=== PATIENT | female | born 1995 | race Caucasian/White ===

== ENCOUNTER 2017-07-23 10:26 | Emergency (ER) | payer MEDICAID, OTHER ==
[~2017-07-23] VITALS: Wt 59.0 kg
[2017-07-23] MEDS ORDERED: ACETAMINOPHEN 325 MG TAB PO STA (10:33)
[2017-07-23] MEDS ORDERED: LIDOCAINE 1%/EPI 30 ML INJ INJ STA (10:33)
[2017-07-23] MEDS ORDERED: SOD CHLORIDE 0.9% 500 ML IV STA (10:33)
[2017-07-23 11:20] LABS: BASOPHILS % 0.4 % (0.0-2.0); EOSINOPHILS # 0.1 10^3/ul (0.0-0.5); EOSINOPHILS % 1.1 % (0.0-7.0); HEMATOCRIT 38.5 % (37.0-47.0); HEMOGLOBIN 13.1 g/dl (12.0-16.0); LYMPHOCYTES # 1.5 10^3/ul (0.8-2.9); LYMPHOCYTES % 19.4 % (18.0-55.0); MEAN CORPUSCULAR HEMOGLOBIN 28.7 pg (29.0-33.0); MEAN CORPUSCULAR VOLUME 84.2 fl (72.0-104.0); MEAN PLATELET VOLUME 10.3 fl (7.4-10.4); MONOCYTE # 0.4 10^3/ul (0.3-0.9); MONOCYTES % 5.6 % (0.0-13.0); NEUTROPHIL # 5.8 10^3/ul (1.6-7.5); NEUTROPHILS % 73.2 % (30.0-74.0); PLATELET COUNT 303 10^3/UL (140-415); RED BLOOD COUNT 4.57 10^6/ul (4.20-5.40); RED CELL DISTRIBUTION WIDTH 13.1 % (11.5-14.5); WHITE BLOOD COUNT 7.9 10^3/ul (4.8-10.8)
--- NOTE | 2017-07-23 11:43 | RADRPT ---
PROCEDURE: OBSTETRICAL ULTRASOUND WITH ENDOVAGINAL IMAGES CLINICAL INDICATION: Vaginal Bleed () TECHNIQUE: Multiple sonographic images of the pelvis were obtained utilizing a transabdominal and endovaginal technique. The images were reviewed on a PACS workstation. COMPARISON: None. LMP: 04/08/2017 FINDINGS: There is a single live intrauterine with heart rate of 161 beats per minute, mean sa c diameter of 6.18 cm, yolk sac, and crown-rump length of 7.22 cm which is consistent with a gestati onal age of 13 weeks, 3 days . The estimated date of delivery by ultrasound is 01/25/2018 . The estimated gestational age by LMP is 15 weeks, 1 day . The estimated date of delivery by LMP is 01/13/2018 . Bilateral ovaries are not visualized. There are no abnormal adnexal masses. No significant pelvic free fluid is identified. IMPRESSION: Single live intrauterine consistent with a gestational age of 13 weeks, 3 days . The estimated date of delivery is 01/25/2018 . Dating by ultrasound is within 12 days of dating by LMP. No subchorionic hemorrhage is identified. Bilateral ovaries are not visualized. There are no abnormal adnexal masses. RPTAT: EE Physician Terrie Date Time Electronically viewed and signed by Physician Terrie on 07/23/2017 11:43 /
[2017-07-23 11:44] LABS: CALCIUM 9.9 mg/dl (8.4-10.2); CREATININE 0.62 mg/dl (0.44-1.00); POTASSIUM 4.4 mmol/L (3.5-5.1)
--- NOTE | 2017-07-23 13:32 | ERD ---
ER Documentation Chief Complaint Chief Complaint pt bib ambulance syncopal episode, lac on left eyebrow, pt aaox4, 3 mos pg HPI This is a 21-year-old female who presents in via EMS after syncopal episode. She states that she was walking [place] just prior to arrival and started to feel lightheaded and collapsed. She hit her head on a counter. She sustained a laceration to the left periorbital space. She describes mild headache that is 2 out of 10. No neck pain. No prodrome of chest pain or shortness of breath. She thinks she might be but has not had care. She is a her last menstrual period was approximately 14 weeks ago. She denies any vaginal bleeding or abdominal cramping or abdominal trauma. ROS All systems reviewed and are negative except as per history of present illness. Medications Home Meds No Active Prescriptions or Reported Meds Allergies Allergies: Coded Allergies: ibuprofen (Verified Allergy, Severe, 07/23/17) PMhx/Soc Hx Respiratory Disorders: Yes (asthma) Hx Alcohol Use: No Hx Substance Use: No Hx Tobacco Use: No Smoking Status: Former smoker FmHx Family History: No diabetes Physical Exam Vitals Vital Signs Date Time Temp Pulse Resp B/P Pulse Ox O2 Delivery O2 Flow Rate FiO2 07/23/17 10:36 98.8 104 17 113/79 99 Physical Exam General: Well developed, well nourished, no acute distress Head: Normocephalic, atraumatic, Other than skin is documented below Eyes: Pupils equally reactive, EOM intact ENT: Moist mucous membranes Neck: Supple, no lymphadenopathy, No midline tenderness, deformities, step-offs to the cervical spine, full active and passive range of motion without midline pain. Respiratory: Lungs clear bilaterally, no distress Cardiovascular: RRR, no murmurs, rubs, or gallops Abdominal: Soft, gravid, nontender, no peritonitis : Deferred MSK: No edema, no unilateral swelling, 5/5 strength Neurologic: Alert and oriented, moving all extremities, normal speech, no focal weakness, no cerebellar signs Skin: 3.0 cm laceration overlying the eyebrow of the left periorbital space that is moderate in depth without exposed deep tissue Psych: Normal mood Result Diagram: 07/23/17 1104 07/23/17 1104 Results 24 hrs Laboratory Tests Test 07/23/17 11:04 White Blood Count 7.910^3/ul Red Blood Count 4.5710^6/ul Hemoglobin 13.1g/dl Hematocrit 38.5% Mean Corpuscular Volume 84.2fl Mean Corpuscular Hemoglobin 28.7pg Mean Corpuscular Hemoglobin Concent 34.0g/dl Red Cell Distribution Width 13.1% Platelet Count 40201^3/UL Mean Platelet Volume 10.3fl Neutrophils % 73.2% Lymphocytes % 19.4% Monocytes % 5.6% Eosinophils % 1.1% Basophils % 0.4% Nucleated Red Blood Cells % 0.0/100WBC Neutrophils # 5.810^3/ul Lymphocytes # 1.510^3/ul Monocytes # 0.410^3/ul Eosinophils # 0.110^3/ul Basophils # 0.010^3/ul Nucleated Red Blood Cells # 0.010^3/ul Sodium Level 140mmol/L Potassium Level 4.4mmol/L Chloride Level 107mmol/L Carbon Dioxide Level 24mmol/L Anion Gap 13 Blood Urea Nitrogen 13mg/dl Creatinine 0.62mg/dl Glucose Level 83mg/dl Calcium Level 9.9mg/dl Beta HCG, Quantitative 54376.0mIU/ml Current Medications Medications (Trade) Dose Ordered Sig/Chriss Route PRN Reason Start Time Stop Time Status Last Admin Dose Admin Sodium Chloride (NS) 500 ml @ 500 mls/hr Q1H STAT IV 07/23/17 10:33 07/23/17 11:32 DC 07/23/17 11:07 Acetaminophen (Tylenol Tab) 650 mg ONCE STAT PO 07/23/17 10:33 07/23/17 10:36 DC 07/23/17 11:08 Lidocaine/ Epinephrine (Xylocaine 1%/ Epi (Pf)) 30 ml ONCE STAT INJ 07/23/17 10:33 07/23/17 10:36 DC Procedures/MDM EKG, MONITORS, & DIAGNOSTIC IMAGING: EKG: I reviewed and interpreted a 12-lead EKG. Rhythm: Normal sinus rhythm Ectopy: None Intervals: No abnormalities ST segments: No elevations or depressions T waves: No contiguous inversions Seizure: Limited abdominal ultrasound performed by me: Indication: Rule out free fluid given syncope and Hepatorenal: [No free fluid] Perisplenic: [No free fluid] Pericystic: [No free fluid] A gravid uterus is noted with a intrauterine gestation in good heart tones Images archived in the medical record Laceration Note: The patient was verbally consented prior to procedure and understands the risks , benefits, and alternatives. The patient is agreeable to procedure and has given verbal consent. Length: 3.0 cm Irrigation: Thorough irrigation was performed with pressure is normal saline Inspection: There is no evidence of deep tissue or structural injury, no evidence of foreign bodies Anesthesia: 1 Percent lidocaine with epinephrine approximately 3 cc Repair: Single-layer repair was six-point 0 Prolene, excellent approximation a total of 5 sutures A clean dressing was applied. The patient tolerated the procedure well with no complications. LAB INTERPRETATION: No significant anemia, Rh- but no evidence of vaginal bleeding or uterine blood MEDICAL DECISION MAKING: She presents with a single episode that seems to be most consistent with vasovagal process. She had a clear prodrome without signs of cardiac arrhythmia , pulmonary embolism or alternative process. She thinks that she is and this is confirmed with a rapid FAST exam and abdominal ultrasound. No signs or symptoms concerning for ectopic . The patient sustained a head injury. The patient has a laceration to her forehead. I had a prolonged conversation and discuss CT imaging. Given the patient's loss of consciousness with syncope I recommended CT of the brain. The patient is very concerned about radiation to her fetus. We discussed the risks benefits and alternatives and the patient would like to defer CT imaging which I believe is reasonable given lower clinical concern for intracranial hemorrhage or clinically significant traumatic brain injury. The patient was observed for 3 hours during which time she continues to be well-appearing with a nonfocal neurologic exam. No indication for CT at this point. ER COURSE: Patient was given Tylenol, her tetanus is up-to-date. Her laceration was repaired as documented above. She has no evidence of anemia, EKG is nonischemic and without arrhythmia. Patient will need suture removal within 5 days. Her tetanus is up-to-date. The patient does not require RhoGam despite Rh- status given no evidence of vaginal bleeding or intrauterine blood. The patient was advised to follow-up with her [employer] [employer] and she feels comfortable with this plan. The patient does not meet high-risk criteria and based on NEXUS cervical spine criteria there is no indication for cervical spine imaging at this time. I kept the patient and/or family informed of laboratory and diagnostic imaging results throughout the emergency room course. DISPOSITION PLAN: We discussed follow up with the patient's primary care doctor within 24 to 48 hours as needed. We also discussed return to the emergency room for worsening symptoms or worsening condition. Outpatient referral: [employer] [employer] [employer] Discharge Medications: None required, Tylenol [id number] as needed for pain, patient will take vitamins Departure Diagnosis: Primary Impression: Syncope Syncope type: unspecified Qualified Code: R55 - Syncope, unspecified syncope type Additional Impressions: Facial laceration Encounter type: initial encounter Qualified Code: S01.81XA - Facial laceration, initial encounter Second trimester Condition: Stable Patient Instructions: , New Dx, Syncope, Unk Cause, Laceration (Sure+ Close) Referrals: [facility] YOU HAVE RECEIVED A MEDICAL SCREENING EXAM AND THE RESULTS INDICATE THAT YOU DO NOT HAVE A CONDITION THAT REQUIRES URGENT TREATMENT IN THE EMERGENCY DEPARTMENT. FURTHER EVALUATION AND TREATMENT OF YOUR CONDITION CAN WAIT UNTIL YOU ARE SEEN IN YOUR DOCTORS OFFICE WITHIN THE NEXT 1-2 DAYS. IT IS YOUR RESPONSIBILITY TO MAKE AN APPOINTMENT FOR FOLOW-UP CARE. IF YOU HAVE A PRIMARY DOCTOR --you should call your primary doctor and schedule an appointment IF YOU DO NOT HAVE A PRIMARY DOCTOR YOU CAN CALL OUR PHYSICIAN REFERRAL HOTLINE AT IF YOU CAN NOT AFFORD TO SEE A PHYSICIAN YOU CAN CHOSE FROM THE FOLLOWING [facility] [address] [facility]. [facility] [address] [facility]. [facility] [address] [facility] [address] [facility]. [facility] [address] [facility]. [facility] [address] [facility] YOU HAVE RECEIVED A MEDICAL SCREENING EXAM AND THE RESULTS INDICATE THAT YOU DO NOT HAVE A CONDITION THAT REQUIRES URGENT TREATMENT IN THE EMERGENCY DEPARTMENT. FURTHER EVALUATION AND TREATMENT OF YOUR CONDITION CAN WAIT UNTIL YOU ARE SEEN IN YOUR DOCTORS OFFICE WITHIN THE NEXT 1-2 DAYS. IT IS YOUR RESPONSIBILITY TO MAKE AN APPOINTMENT FOR FOLOW-UP CARE. IF YOU HAVE A PRIMARY DOCTOR --you should call your primary doctor and schedule and appointment IF YOU DO NOT HAVE A PRIMARY DOCTOR YOU CAN CALL OUR PHYSICIAN REFERRAL HOTLINE AT . IF YOU CAN NOT AFFORD TO SEE A PHYSICIAN YOU CAN CHOSE FROM THE FOLLOWING [facility] INSTITUTIONS: [facility] [address] [place] [address] [facility] [address] [place] [address] [facility] [address] [place] [address] [employer] [place] [address] [facility] [address] [place] [address] OFFICE FAX [facility] [address] [place] [address] [facility] [address] [place] [address] [address], [facility] [address] [facility], [address], [facility] [address] [address] [facility] [address] [place] [address] [facility] [address] [place] [address] [address] [facility] [address] - [address] [facility] [address] [address] [address] [facility]. [address], [facility] [address] [address] [address] [place], [place] [id number] Additional Instructions: Suture removal in 5 days. You need to follow with your [employer] for this . GELACIO ADAMS MD Jul 23, 2017 13:32
[2017-07-23 14:04] VITALS: BP 99/67; PULSE 85; RESP 18
== END 2017-07-23 14:07 | disposition home or self-care (01) ==
LOC: E/R 10:26
DX: O99.89 Other specified diseases and conditions complicating pregnancy, childbirth and the puerperium (principal); R55 Syncope and collapse; S01.81XA Laceration without foreign body of other part of head, initial encounter; O9A.211 Injury, poisoning and certain other consequences of external causes complicating pregnancy, first trimester; O99.511 Diseases of the respiratory system complicating pregnancy, first trimester; J45.909 Unspecified asthma, uncomplicated; R10.2 Pelvic and perineal pain; X58.XXXA Exposure to other specified factors, initial encounter; Y92.9 Unspecified place or not applicable; Z87.891 Personal history of nicotine dependence
CPT/HCPCS: 12013; 36415; 76801; 80048; 84702; 85025; 86900; 86901; 93005; J7040; Z7502; Z7610